=== PATIENT | female | born 1980 | race Caucasian/White ===

== ENCOUNTER → 2020-03-29 14:51 | Outpatient (BNVA) | payer OTHER, MEDICAID, SELFPAY | PROVIDERS: PCP Family Medicine; Visit Provider Obstetrics & Gynecology | DX: R10.2 Pelvic and perineal pain (principal); Z30.09 Encounter for other general counseling and advice on contraception; Z30.9 Encounter for contraceptive management, unspecified | CPT/HCPCS: 81025 ==